=== PATIENT | female | born 1970 | race Caucasian/White ===

== ENCOUNTER 2018-02-23 16:08 | Emergency (ER) | payer MEDICAID, OTHER ==
[~2018-02-23] VITALS: Ht 154.9 cm; Wt 84.8 kg
--- NOTE | 2018-02-23 16:12 | NUR ---
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 PATIENT IS AWAKE AND ALERT, APPEARS IN NO DISTRESS. RESPIRATION EVEN AND UNLABORED.SKIN IS WARM TO TOUCH AND NON DIAPHORETIC. PATIENT IS AFEBRILE. VSS
--- NOTE | 2018-02-23 16:13 | NUR ---
EKG IN PROGRESS
[2018-02-23] MEDS ORDERED: NITROGLYCERIN 0.4 MG/TAB BOTTLE ONE (16:16)
[2018-02-23] MEDS ORDERED: NITROGLYCERIN 0.4 MG/TAB BOTTLE SL ONE (16:30)
[2018-02-23 16:34] LABS: BASOPHILS % (AUTO) 0.5 % (0.0-2.0); EOSINOPHILS % (AUTO) 0.9 % (0.0-6.0); HEMATOCRIT 29 % (33-45); HEMOGLOBIN 9.9 g/dL (11.5-14.8); LYMPHOCYTES # (AUTO) 1.9 /CMM (0.8-4.8); LYMPHOCYTES % (AUTO) 27.7 % (20.0-44.0); MEAN CORPUSCULAR HGB CONC 34 g/dl (31.0-36.0); MEAN CORPUSCULAR VOLUME 83 fL (82-100); MONOCYTES # (AUTO) 0.4 /CMM (0.1-1.30); MONOCYTES % (AUTO) 5.9 % (2.0-12.0); NEUTROPHILS # (AUTO) 4.5 /CMM (1.8-8.9); PLATELET COUNT (AUTO) 214 /CMM (150-450); RDW COEFFICIENT OF VARIATION 14.3 (11.5-15.0); RED BLOOD CELL COUNT(AUTO) 3.51 MIL/uL (4.0-5.2); WHITE BLOOD COUNT (AUTO) 6.9 K/uL (4.3-11.0)
[2018-02-23 16:52] LABS: TROPONIN I < 0.017 ng/mL (0.00-0.056)
[2018-02-23 16:54] LABS: INR 0.9 (0.87-1.13)
[2018-02-23 17:10] LABS: ALANINE AMINOTRANSFERASE 29 U/L (12-78); ALKALINE PHOSPHATASE 67 U/L (46-116); ASPARTATE AMINOTRANSFERASE 23 U/L (15-37); B-TYPE NATRIURETIC PEPTIDE 2312 PG/ML (0-125); BILIRUBIN,DIRECT 0.1 mg/dL (0.0-0.2); BILIRUBIN,TOTAL 0.2 mg/dL (0.2-1.0); CALCIUM, SERUM 8.2 mg/dL (8.5-10.1); CARBON DIOXIDE 24 mmol/L (21-32); CHLORIDE 104 mmol/L (98-107); CREATININE 1.5 mg/dL (0.6-1.3); GLUCOSE 346 mg/dL (74-106); POTASSIUM 4.3 mmol/L (3.5-5.1); SODIUM SERUM 137 mmol/L (136-145); TOTAL PROTEIN, SERUM 5.9 g/dL (6.4-8.2); UREA NITROGEN, BLOOD 30 mg/dL (7-18)
[2018-02-23] MEDS ORDERED: INSULIN REGULAR, HUMAN 100 UNIT/ML 10 ML VIAL ONE (17:27)
[2018-02-23] MEDS ORDERED: IV NS 0.9% 1,000 ML BAG IV ONE (17:30)
[2018-02-23] MEDS ORDERED: INSULIN REGULAR, HUMAN 100 UNIT/ML 10 ML VIAL SQ ONE (17:30)
[2018-02-23 18:35] VITALS: BP 132/80
--- NOTE | 2018-02-23 18:36 | NUR ---
Patient discharged to home in stable condition. Written and verbal after care instructions given. Patient verbalizes understanding of instruction.
== END 2018-02-23 18:36 | disposition home or self-care (01) ==
LOC: ER 16:09
DX: R07.89 Other chest pain (principal); E11.65 Type 2 diabetes mellitus with hyperglycemia; N28.9 Disorder of kidney and ureter, unspecified
CPT/HCPCS: 36415; 71045-TC; 80048-TC; 80076-TC; 83880; 84484-TC; 85025-TC; 85730-TC; A4606; J1815; J7030; Z7610